=== PATIENT | female | born 1955 | race Caucasian/White ===

== ENCOUNTER → 2019-06-26 11:44 | Outpatient (CLI) | payer OTHER, SELFPAY ==
--- NOTE | 2019-06-26 | DI.US.S_ITS ---
PROCEDURE: US PARACENTESIS INDICATIONS: MALIGNANT ASCITES TECHNIQUE: The indications, alternatives, benefits, risks, and complications of the procedure were explained to the patient. Written informed consent was obtained and placed in the chart. The abdomen and pelvis were examined sonographically, and an appropriate site was chosen for paracentesis. The skin was prepared and draped in the usual sterile fashion, and 1% lidocaine was infiltrated from the skin down through the peritoneal surface. A 19-gauge catheter-covered needle was then introduced into the peritoneal space, the catheter was advanced and the needle was withdrawn, and thereafter peritoneal fluid was withdrawn. The catheter was then removed and a dressing was applied. The fluid was discarded if the clinician did not order diagnostic testing of the fluid. COMPARISON: None. FINDINGS: Access site: Right lateral abdomen/pelvis anterolateral body wall junction Needle: One-Step centesis catheter with introducer needle. Fluid volume and description: 1500 cc, serosanguineous. Fluid sent for diagnostic testing: Not requested Medications: 1% lidocaine for local anaesthesia. Complications: None. IMPRESSION: Successful ultrasound-guided paracentesis, 1500 cc serosanguineous fluid successfully aspirated. Dictated by: Rm Amin M.D. on 06/26/2019 at 16:30 Approved by: Rm Amin M.D. on 06/26/2019 at 16:31
[2019-06-26 14:07] LABS: Hematocrit 28.5 % (36-46); Hemoglobin 9.7 g/dL (12.0-16.0)
[2019-06-26 14:19] LABS: Alanine Aminotransferase 16 IU/L (<35); Albumin 4.1 g/dL (3.5-5.0); Albumin Globulin Ratio 1.3 (1.0-2.8); Alkaline Phosphatase 68 U/L (38-126); Aspartate Aminotransferase 27 IU/L (14-36); BUN Creatinine Ratio 35.3 (6-22); Bilirubin Total 0.5 mg/dL (0.2-1.3); Blood Urea Nitrogen 24 mg/dL (7-17); Calcium 9.8 mg/dL (8.4-10.2); Carbon Dioxide 32 mmol/L (22-32); Chloride 97 mmol/L (98-107); Estimated Glomerular Filt Rate > 60.0 mL/min (>60); Globulin 3.2 g/dL (1.7-4.1); Glucose 112 mg/dL (80-110); HEMOLYSIS < 15 (0-50); Potassium 4.6 mmol/L (3.4-5.1); Total Protein 7.3 g/dL (6.3-8.2)
[2019-06-26 14:28] LABS: Sodium 137 mmol/L (137-145)
[2019-06-26 14:36] LABS: Prothrombin Time 12.6 SECONDS (10.1-12.7)
[2019-06-26 14:38] LABS: PTT Partial Thromboplastin Tim 27 SECONDS (26.4-36.2)
[2019-06-26 14:49] LABS: Cancer Antigen 125 970 U/mL (0-35)
[2019-06-26 14:51] LABS: INR 1.1 (0.9-1.3)
== END ==
DX: C56.2 Malignant neoplasm of left ovary (principal); R18.0 Malignant ascites
CPT/HCPCS: 36415; 49083; 80053; 85014; 85018; 85610; 85730; 86304